=== PATIENT | female | born 1980 | race African-American/Black ===

== ENCOUNTER 2023-03-12 01:26 | Emergency (ER) | payer MEDICAID ==
[~2023-03-12] VITALS: Ht 160 cm; Wt 113.0 kg
[2023-03-12] MEDS ORDERED: LIDOCAINE 5% PATCH TOP SCH (02:30)
[2023-03-12] MEDS ORDERED: KETOROLAC 60MG/2ML VIAL IM ONE (02:30)
[2023-03-12] MEDS ORDERED: LIDO700A15 TP (02:41)
[2023-03-12] MEDS ORDERED: TOPUD PO (02:41)
[2023-03-12 03:28] VITALS: BP 122/70
== END 2023-03-12 03:33 | disposition home or self-care (01) ==
LOC: ER 01:26
DX: G89.29 Other chronic pain (principal); M54.9 Dorsalgia, unspecified; Z98.890 Other specified postprocedural states
CPT/HCPCS: 96372; 99283; J1885; Z7610